=== PATIENT | male | born 1945 | race Caucasian/White ===

== ENCOUNTER 2022-01-17 15:54 | Emergency (ER) | payer MEDICARE, SELFPAY ==
[2022-01-17 16:03] VITALS: BP 195/93; PULSE 80; RESP 17; TEMP 36.8; O2SAT 98; BMI 28.3
[2022-01-17 16:07] LABS: Microscopic, Urine URINE MICROSCOPIC (MICROSCOPIC)
--- NOTE | 2022-01-17 16:07 | CT_ITS ---
PROCEDURE INFORMATION: Exam: CT Abdomen And Pelvis Without Contrast Exam date and time: 01/17/2022 4:27 PM Age: 76 years old Clinical indication: Abdominal pain; Patient HX: Left flank pain for a couple days , prior kidney stones. ; Additional info: R/O kidney stones TECHNIQUE: Imaging protocol: Computed tomography of the abdomen and pelvis without contrast. Radiation optimization: All CT scans at this facility use at least one of these dose optimization techniques: automated exposure control; mA and/or kV adjustment per patient size (includes targeted exams where dose is matched to clinical indication); or iterative reconstruction. COMPARISON: No relevant prior studies available. FINDINGS: Diaphragm: Small hiatal hernia. Liver: 7 mm cyst posteriorly in the right lobe of the liver. Gallbladder and bile ducts: Cholelithiasis the Pancreas: Normal. No ductal dilation. Spleen: Scattered granulomas are demonstrated in the spleen and liver. Adrenal glands: Normal. No mass. Kidneys and ureters: Bilateral perinephric stranding. Findings nonspecific and may reflect acute versus chronic inflammatory change. Findings most pronounced in association with the left kidney. Bilateral nonobstructing renal calculi. 3 mm partially obstructing calculus in the left ureter just superior to the iliac crest. Associated mild left hydronephrosis and hydroureter. Findings demonstrated on series 1001, image number 41. Subtle regions of diminished density within the left kidney. Could not exclude developing pyelonephritis. Stomach and bowel: Scattered diverticula are demonstrated within the sigmoid colon. Findings compatible with mild diverticulosis. Appendix: No evidence of appendicitis. Intraperitoneal space: Unremarkable. No free air. No significant fluid collection. Vasculature: Unremarkable. No abdominal aortic aneurysm. Lymph nodes: Unremarkable. No enlarged lymph nodes. Urinary bladder: Unremarkable as visualized. Reproductive: Unremarkable as visualized. Bones/joints: See Kidneys and ureters finding. Soft tissues: Unremarkable. IMPRESSION: 1. 3 mm partially obstructing distal left ureteral calculus. Associated mild left hydronephrosis and hydroureter. 2. Prominent regions of left greater than right perinephric stranding. Superimposed findings suspicious for developing pyelonephritis. Clinically correlate. 3. Bilateral nonobstructing renal calculi. 4. Diverticulosis. No evidence of diverticulitis.
[2022-01-17 16:10] LABS: Appearance,Urine CLEAR (Clear); Blood, Urine 2+ (Negative); Color,Urine YELLOW (Yellow); Glucose,Urine (UA) Negative (Negative); Ketones,Urine TRACE (Negative); Leukocyte Esterase,Urine Negative (Negative); Nitrate,Urine Negative (Negative); Protein,Urine TRACE (Negative); Specific Gravity, Urine >= 1.030 (1.005-1.030); Urobilinogen,Urine 0.2 EU/dl (0.2)
--- NOTE | 2022-01-17 16:28 | PC.NURSE ---
pt to CT with hearing aide technician by meeta
[2022-01-17 16:29] LABS: Basophils # 0.5 K/mm3 (0-0.2); Basophils % 4.5 % (0.1-2.0); Eosinophils # 0.1 K/mm3 (0.0-0.4); Eosinophils % 1.3 % (0.1-12.0); Hematocrit 45.3 % (42.0-52.0); Hemoglobin 15.8 g/dL (14.1-18.0); Lymphocytes # 1.6 K/mm3 (0.7-4.5); Lymphocytes % 15.6 % (10-50); Mean Corpuscular Hemoglobin 31.7 pg (27.0-31.2); Mean Corpuscular Volume 90.8 fl (80-94); Mean Platelet Volume 8.8 fl (7.4-10.4); Monocytes # 0.7 K/mm3 (0.1-1.0); Monocytes % 6.4 % (1.7-9.3); Neutrophils # 7.8 K/mm3 (1.8-7.8); Neutrophils % 76.7 % (37.0-80.0); Platelet Count 225 K/mm3 (142-424); Red Blood Count 4.99 M/mm3 (4.60-6.20); Red Cell Distribution Width 14.7 % (11.5-17.5); White Blood Count 10.2 K/mm3 (4.8-10.8)
[2022-01-17 16:34] LABS: Chloride 105 mmol/L (98-107); Potassium 3.5 mmoL/L (3.5-5.1); Sodium 140 mmol/L (136-145)
[2022-01-17 16:36] LABS: Amylase 75 U/L (30-110); Lipase 194 U/L (23-300)
[2022-01-17 16:37] LABS: Alanine Aminotransferase 21 U/L (12-78); Albumin Level 4.3 g/dl (3.5-5.0); Albumin/Globulin Ratio 1.5 (1.1-1.8); Alkaline Phosphatase 77 U/L (38-126); Aspartate Amino Transferase 33 U/L (17-59); Bilirubin,Total 1.1 mg/dl (0.2-1.3); Blood Urea Nitrogen 18 mg/dl (9-20); Calcium 9.5 mg/dl (8.4-10.2); Creatinine Clearance Estimated 40 mL/min (50-200); Estimated Glomerular Filt Rate 39 ml/min (>60); GFR (African American) 48 ML/MIN (>60); Globulin 2.9 g/dL (1.3-3.2); Glucose 120 mg/dl (74-100); Total Protein,Serum 7.2 g/dl (6.3-8.2)
[2022-01-17 16:38] LABS: Anion Gap 11.5 mEq/L (5-15); Carbon Dioxide 27 mmol/L (22.0-30.0)
[2022-01-17 16:40] LABS: Bilirubin,Urine 1+ (Negative)
[2022-01-17 16:54] LABS: Bacteria,Urine 1+ /lpf; Mucus,Urine 2+ /lpf
--- NOTE | 2022-01-17 16:55 | [facility].EDGENADL ---
ED Disposition Clinical Impression: Left ureteral calculus Disposition: Home, Self-Care Condition on Discharge: Fair Instructions: DI for Kidney Stones Additional Instructions: Flomax as prescribed. Percocet as needed for pain. Zofran as needed for nausea. Additional instructions for KIDNEY STONE (URETERAL CALCULUS): See Dr. Pop as soon as possible for further evaluation. Drink plenty of fluids. Strain your urine and save any stones you catch. Return immediately if you develop a fever or have uncontrollable vomiting or uncontrollable pain. KIDNEY STONE DIET: Most kidney stones contain calcium oxalate. The logical assumption would be that you should avoid calcium and oxalate in your diet. Contrary to what you would think, this is not necessarily the case. What is actually recommended for kidney stone prevention is a diet that contains MODERATELY HIGH AMOUNTS OF CALCIUM and is LOW IN SODIUM with PLENTY OF FLUIDS. Recommendations: Drink a lot of water each day: A minimum would be 8-10 glasses (8 oz each) of fluid per day. Sodium: Try not to get more than 1500 mg a day. Calcium: Dietary calcium prevents absorption of oxalate which helps prevent stones. Make sure you get about 1000 to 1200 mg a day. You can get enough calcium from dairy products without taking supplements. Calcium should be ingested with meals, not in between meals. You need to get your calcium at mealtime to decrease the absorption of oxalate from other foods. Eat dairy with each meal (e.g. milk or cheese or yogurt). Oxalate: Although some experts recommend avoiding oxalate in your diet, there have been no studies that prove this works. Eating more calcium will reduce oxalate absorption, and is probably all that is needed to reduce oxalate in your urine. Oxalate containing foods are generally good for you in all other respects - leafy greens, nuts, etc... So avoiding them unnecessarily might not be the best thing for your health. ALSO: If you retrieve your stone by straining your urine, take it to your physician for stone analysis, which can help tailor your dietary recommendations. For further reading, check out the [facility] web page about the kidney stone diet: [email or web address] Additional instructions for CONTROLLED SUBSTANCES: You have been prescribed a medication that is a controlled substance. Controlled substances include pain medications known as opiates and sedative nerve medications known as benzodiazepines. Tramadol, fioricet, and gabapentin are also controlled substances. Some common opiates include: Codeine (such as Tylenol #3) Hydrocodone (Vicodin, Lortab, Lorcet, [place]) Oxycodone (Percocet, Percodan, Oxycodone, Oxy IR) Some common benzodiazepines include: Diazepam (Valium) Lorazepam (Ativan) Alprazolam (Xanax) Clonazepam (Klonopin) Oxazepam (Serax) All of these controlled substances are highly addictive and frequently abused. Misuse can and frequently does lead to addiction as well as overdose and . Medication should be stored in a locked cabinet or other secure storage unit. Do not store the medication in a motor vehicle. Short term supplies, 3 days or less, are prescribed because of the highly addictive nature of the medication. Any of the controlled substance medication NOT taken should be disposed of properly and NOT SAVED. The recommended method of disposing of unused medications is: Place the medicines in a sealable plastic bag. If the medicine is a solid, crush it or add water to dissolve it. Add something undesirable (cat litter, coffee grounds, etc.) Dispose of sealed bag in household trash Do not flush or pour unused medicines down a sink or drain. Controlled substances should not be shared, given away or sold. Because of the addictive nature and frequent abuse, these medications are sometimes stolen. These medi
[2022-01-17 17:00] VITALS: BP 165/111; PULSE 74; RESP 18; O2SAT 98
--- NOTE | 2022-01-17 17:10 | PC.NURSE ---
ED MD at speaking with patient
[2022-01-17 17:13] VITALS: BP 175/98; PULSE 81; RESP 16; O2SAT 99
[2022-01-17 17:30] VITALS: BP 154/94; PULSE 64; RESP 18
[2022-01-17 17:38] VITALS: BP 154/94; PULSE 82; RESP 17; TEMP 36.7; O2SAT 99
== END 2022-01-17 17:38 | disposition home or self-care (01) ==
PROVIDERS: Emergency Provider Emergency Medicine; PCP Family Medicine
DX: N20.1 Calculus of ureter (principal); Z87.442 Personal history of urinary calculi; Z79.82 Long term (current) use of aspirin
CPT/HCPCS: 74176; 80053; 81001; 82150; 83690; 85025; 96365; 96375; 99284; J2405